=== PATIENT | female | born 1975 | race Caucasian/White ===

== ENCOUNTER 2018-09-18 05:38 | Day surgery (SDC) | payer BC ==
[2018-09-11 09:48] LABS: HEMATOCRIT 28.4 % (36.0-47.0); HEMOGLOBIN 8.7 g/dL (12.0-15.5); MEAN CORPUSCULAR HEMOGLOBIN 19.6 pg (27.0-33.4); MEAN CORPUSCULAR HGB CONC 30.7 g/dL (32.0-36.0); PLATELET COUNT 322 10^3/uL (150-450); RED BLOOD COUNT 4.44 10^6/uL (3.72-5.28); RED CELL DISTRIBUTION WIDTH 17.5 % (11.5-14.0); WHITE BLOOD COUNT 4.1 10^3/uL (4.0-10.5)
[2018-09-11 09:54] LABS: APPEARANCE,URINE CLEAR; BILIRUBIN,URINE NEGATIVE (NEGATIVE); COLOR,URINE STRAW; GLUCOSE, URINE NEGATIVE (NEGATIVE); KETONES,URINE NEGATIVE (NEGATIVE); LEUKOCYTE ESTERASE,URINE NEGATIVE (NEGATIVE); NITRITE,URINE NEGATIVE (NEGATIVE); PROTEIN,URINE NEGATIVE (NEGATIVE); URINE SPECIFIC GRAVITY 1.005; UROBILINOGEN,URINE NEGATIVE mg/dL (<2.0)
[2018-09-11 10:08] LABS: MEAN CORPUSCULAR VOLUME 64 fl (80-97)
[2018-09-11 10:12] LABS: ALANINE AMINOTRANSFERASE 31 U/L (9-52); ALBUMIN 3.9 g/dL (3.5-5.0); ALKALINE PHOSPHATASE 71 U/L (38-126); ANION GAP 9 (5-19); ASPARTATE AMINO TRANSFERASE 27 U/L (14-36); BILIRUBIN,DIRECT 0.2 mg/dL (0.0-0.4); BILIRUBIN,TOTAL 0.4 mg/dL (0.2-1.3); BLOOD UREA NITROGEN 8 mg/dL (7-20); CALCIUM 9.4 mg/dL (8.4-10.2); CARBON DIOXIDE 27 mmol/L (22-30); CHLORIDE 104 mmol/L (98-107); GLUCOSE 80 mg/dL (75-110); POTASSIUM 4.3 mmol/L (3.6-5.0); SODIUM 139.5 mmol/L (137-145)
--- NOTE | 2018-09-11 10:54 | RADIOLOGY REPORT (SQ) ---
EXAM DESCRIPTION: CHEST PA/LATERAL COMPLETED DATE/TIME: 09/11/2018 9:24 am REASON FOR STUDY: PRE-OP COMPARISON: None. EXAM PARAMETERS: NUMBER OF VIEWS: two views TECHNIQUE: Digital Frontal and Lateral radiographic views of the chest acquired. RADIATION DOSE: NA LIMITATIONS: none FINDINGS: LUNGS AND PLEURA: No opacities, masses or pneumothorax. No pleural effusion. MEDIASTINUM AND HILAR STRUCTURES: No masses or contour abnormalities. HEART AND VASCULAR STRUCTURES: Heart normal size. No evidence for failure. BONES: No acute findings. HARDWARE: None in the chest. OTHER: No other significant finding. IMPRESSION: NO SIGNIFICANT RADIOGRAPHIC FINDING IN THE CHEST. TECHNICAL DOCUMENTATION: JOB ID: [id number] [employer]- All Rights Reserved Reading location - IP/workstation name: [email or web address]
--- NOTE | 2018-09-11 20:44 | EKG REPORT ---
SEVERITY:- NORMAL ECG - SINUS RHYTHM : Confirmed by: Michela Cheatham MD 11-Sep-2018 20:43:29
[2018-09-12 12:30] LABS: PATH REVIEW PATHOLOGIST REVIEWED
[~2018-09-18 05:38] MED LIST: CEFAZOLIN 1 GM/D5W RTU 1 GM/50 ML RTUPB IV ONE; CEFAZOLIN 1 GM/D5W RTU 1 GM/50 ML RTUPB IV PRN; LACTATED RINGERS 1000 ML IV PRN; LIDOCAINE 0.5% INJ-PF (5 MG/ML) 50 ML SDV SUBCUT PRN; RINGERS SOLUTION,LACTATED 1,000 ML IV PRN
[2018-09-18] MEDS ORDERED: FENTANYL CITRATE INJ/PF 250 MCG/5 ML AMPULE ONE (07:24)
[2018-09-18] MEDS ORDERED: HYDROMORPHONE HCL INJ/PF 2 MG/ML AMPULE ONE (07:24)
[2018-09-18] MEDS ORDERED: PROPOFOL INJ 200 MG/20 ML VIAL IV ONE (07:24)
[2018-09-18] MEDS ORDERED: MIDAZOLAM 2 MG/2 ML INJ ONE (07:24)
[2018-09-18] MEDS ORDERED: BUPIVACAINE HCL 0.25 % INJ/PF (2.5 MG/1 ML) 30 ML VIAL ONE (07:27)
[2018-09-18] MEDS ORDERED: PROMETHAZINE HCL INJ 25 MG/1 ML VIAL IV PRN (08:10)
[2018-09-18] MEDS ORDERED: MEPERIDINE HCL/PF INJ 25 MG/1 ML DISP.SYRIN IV PRN (08:10)
[2018-09-18] MEDS ORDERED: FENTANYL CITRATE INJ/PF 100 MCG/2 ML AMPUL IV PRN ×3 (08:10)
[2018-09-18] MEDS ORDERED: MORPHINE SULFATE 10 MG/ML INJ IV PRN ×2 (08:10→10:01)
[2018-09-18] MEDS ORDERED: DIPHENHYDRAMINE HCL 50 MG/ML VIAL IV PRN (08:10)
[2018-09-18] MEDS: FENTANYL CITRATE INJ/PF 100 MCG/2 ML AMPUL ONE ×2 (09:50→09:55)
--- NOTE | 2018-09-18 10:00 | OPERATIVE REPORT E ---
Operative Report NAME: DONNIE MCCANN : 1975 AGE: 42Y DATE OF SURGERY: 09/18/2018 ROOM: PREOPERATIVE DIAGNOSIS: DYSMENORRHEA AND MENORRHAGIA. POSTOPERATIVE DIAGNOSIS: 1. DYSMENORRHEA AND MENORRHAGIA. 2. FIBROIDS. OPERATION: Robotic-assisted hysterectomy with granular morcellation and bilateral salpingectomy. SURGEON: Abdirashid LAURENT M.D. ESTIMATED BLOOD LOSS: Less than 50 mL TISSUE REMOVED: Uterus and tubes. SURGEON: Abdirashid LAURENT M.D. ANESTHESIA: General. PROCEDURE: The patient was placed in the dorsal position, prepped and draped in normal sterile fashion. A speculum was placed and the cervix was visualized and grasped with a single-tooth tenaculum and the uterus sounded to a depth of 12 cm. The uterine manipulator was then placed per protocol. Attention was turned to the abdomen, where a subumbilical linear incision was made. Trocar was introduced with visualization of the pelvis. The uterus was large and boggy and appeared to have a large posterior fibroid. Same puncture was made lateral to the first and a 5 was introduced. A third lateral on the right and a 5 was introduced and then an accessory port in the suprailiac crest on the right. Robot docked in usual fashion. Using monopolar and bipolar cautery, the left tube was identified and divided along the mesosalpinx. The broad ligament was then divided down to the ascending branch of the uterine artery. Procedure was repeated on the right. There were multiple adhesions from the posterior aspect of the uterus and these were taken down carefully with sharp and blunt dissection. Rim identified and circumferential incision made and the uterus then was too large to pass through so the robot was undocked and the uterus was removed by morcellation vaginal. The vaginal cuff was then closed with 0 V-Loc. Abdomen reinflated and the pelvis and cuff appeared to be hemostatic. Adnexa was hemostatic. No other overt abnormalities were noted. The laparoscope was removed and deflated. The trocar sleeve is removed. Incision is closed with 4-0 Vicryl subcutaneous. The patient's urine remained clear throughout the procedure and she was taken to the recovery room in good condition. DICTATING PHYSICIAN: Abdirashid LAURENT M.D. [id number] PHY#: [id number] ID: [id number] JOB#: [id number] ACCT: [id number] cc:Abdirashid LAURENT M.D. >
[2018-09-18] MEDS: OXYCODONE-ACETAMINOPHEN 5-325 MG TABLET PO PRN ×2 (11:07→18:04)
[2018-09-18] MEDS ORDERED: NEOSTIGMINE METHYLSULFATE 10 MG/10 ML VIAL ONE (12:14)
[2018-09-18] MEDS ORDERED: DEXAMETHASONE SOD PHOSPHATE INJ 4 MG/1 ML VIAL ONE (12:14)
[2018-09-18] MEDS ORDERED: SUCCINYLCHOLINE CHLORIDE INJ 200 MG/10 ML VIAL ONE (12:14)
[2018-09-18] MEDS ORDERED: VECURONIUM BROMIDE INJ 10 MG VIAL IV ONE (12:14)
[2018-09-18] MEDS ORDERED: GLYCOPYRROLATE 1 MG/5 ML VIAL ONE (12:14)
[2018-09-18] MEDS ORDERED: ONDANSETRON HCL INJ/PF 4 MG/2 ML SDV ONE (12:14)
[2018-09-18] MEDS: IBUPROFEN 800 MG TABLET PO SCH ×2 (13:21→21:55)
[2018-09-18] MEDS: ONDANSETRON 4 MG TAB.RAPDIS PO SCH ×2 (13:24→18:04)
[2018-09-18] MEDS ORDERED: RINGERS SOLUTION,LACTATED 1,000 ML IV ONE (18:00)
[2018-09-18] MEDS ORDERED: ZOLPIDEM TARTRATE 5 MG TABLET PO PRN (20:38)
[2018-09-18] MEDS: ESCITALOPRAM OXALATE 10 MG TABLET PO SCH (21:54)
[2018-09-19] MEDS: OXYCODONE-ACETAMINOPHEN 5-325 MG TABLET PO PRN ×2 (01:03→09:37)
--- NOTE | 2018-09-19 03:27 | PDOC PROGRESS REPORT ---
Subjective Progress Note for:: 09/18/18 Subjective:: called by RN regarding patients medications and patient had not met DTV Reason For Visit: N92.0 EXCESSIVE AND FREQUENT MENSTRUATION WITH REG Physical Exam - Physical Exam Vital Signs: Temp Pulse Resp BP Pulse Ox 97.9 F 76 16 109/70 100 09/19/18 00:56 09/19/18 00:56 09/19/18 00:56 09/19/18 00:56 09/19/18 00:56 Intake & Output 09/17/18 09/18/18 09/19/18 06:59 06:59 06:59 Intake Total 0 3350 Output Total 2275 Balance 0 1075 Weight 95.25 kg General appearance: PRESENT: no acute distress, well-developed, well-nourished Head exam: PRESENT: atraumatic, normocephalic Rectal exam: PRESENT: deferred Extremities exam: PRESENT: full ROM. ABSENT: calf tenderness, clubbing, pedal edema Neurological exam: PRESENT: alert, awake, oriented to person, oriented to place, oriented to time, oriented to situation, CN II-XII grossly intact. ABSENT: motor sensory deficit Psychiatric exam: PRESENT: appropriate affect, normal mood. ABSENT: homicidal ideation, suicidal ideation Skin exam: PRESENT: dry, intact, warm. ABSENT: cyanosis, rash Result Laboratory Results: 09/11/18 08:59 09/11/18 08:59 Impressions: Chest X-Ray 09/11/18 00:00 IMPRESSION: NO SIGNIFICANT RADIOGRAPHIC FINDING IN THE CHEST. Status: Imported from PACS Assessment & Plan - Diagnosis (1) Acute urinary retention Is this a current diagnosis for this admission?: Yes Plan: Pt underwent robotic hysterectomy on 09/18 in early am. Rn called and asked for clarification of lexapro order - order clarified. RN also reported that patient had not met DTV. - I clarified timing with RN. Surgery was likely completed approx 0900 at which time the parson was removed and patient arrived to floor around 1000 therefore DTV was due approx 1600. Per RN patient was unable to void since parson was removed and straight cath performed with approx 800+ removed from bladder. At which time the patient was reportedly asked to void again in an hour. Parson to gravity was requested to be replaced. I also notified operating surgeon regarding patients urinary retention and replacement of the catheter. - Time Time Spent with patient: Less than 15 minutes Medications reviewed and adjusted accordingly: Yes Anticipated discharge: Home Within: within 48 hours Disposition: Home - Inpatient Certification Based on my medical assessment, after consideration of the patient's comorbidities, presenting symptoms, or acuity I expect that the services needed warrant INPATIENT care.: Yes I certify that my determination is in accordance with my understanding of Medicare's requirements for reasonable and necessary INPATIENT services [42 CFR 412.3e].: Yes Medical Necessity: Failure to Improve With Outpatient Therapy, Need Close Monitoring Due to Risk of Patient Decompensation, Need For IV Fluids, Need for Pain Control
[2018-09-19] MEDS: IBUPROFEN 800 MG TABLET PO SCH (06:24)
[2018-09-19] MEDS ORDERED: BETHANECHOL CHLORIDE 25 MG TABLET PO ONE (09:30)
[2018-09-19] MEDS: ONDANSETRON 4 MG TAB.RAPDIS PO SCH (09:37)
[2018-09-19] MEDS: ESCITALOPRAM OXALATE 10 MG TABLET PO SCH (09:37)
[2018-09-19] MEDS ORDERED: DEXTROAMPHETAMINE PO SCH (10:00)
[2018-09-19] MEDS ORDERED: AMPHETAMINE PO SCH (10:00)
[2018-09-19] MEDS ORDERED: [UNRECOGNIZED DRUG - OTHER] PO SCH (10:00)
--- NOTE | 2018-09-19 11:22 | Discharge Summary ---
Discharge Summary (SDC) - Discharge Final Diagnosis: leiomyoma menorrhagia acute urinary retention Date of Surgery: 09/18/18 Discharge Date: 09/19/18 Condition: Good Referrals: ALEJO MOLINA MD [ACTIVE STAFF] - 10/02/18 1:00 pm (Please follow up with Dr Molina on 10/02/18 at 1:00. If you have any questions or problems please call the office directly at .) Discharge Diet: As Tolerated Respiratory Treatments at Home: Deep Breathing/Coughing Discharge Activity: Balance Activity w/Rest, No Lifting Over 10 Pounds, No Lifting/Push/Pulling, Pelvic Rest, Slowly Increase Activity, No tub bath Home Care Assistance: None Needed Report the Following to Your Physician Immediately: Shortness of Breath, Increase in Pain, Fever over 101 Degrees, Unusual Bleeding, Redness, Swelling, Warmth, Increased Soreness, IV Site Infection Signs, Urinary Infection Signs
[2018-09-19 12:06] VITALS: BP 114/67
== END 2018-09-19 12:44 | disposition home or self-care (01) ==
LOC: OROUT 05:38 → 2N 10:45 → OROUT 09-19 12:44
PROVIDERS: ATTEND Obstetrics & Gynecology Gynecology
DX: N92.0 Excessive and frequent menstruation with regular cycle (principal); D25.0 Submucous leiomyoma of uterus; N80.0 Endometriosis of uterus; N83.8 Other noninflammatory disorders of ovary, fallopian tube and broad ligament; N94.6 Dysmenorrhea, unspecified; R33.8 Other retention of urine; Z87.891 Personal history of nicotine dependence; Z79.899 Other long term (current) drug therapy
CPT/HCPCS: 58573; S2900; 36415; 71046; 80053; 81001; 81025; 840; 85027; 86850; 86900; 86901; 88307; 93005; 93010; J0330; J0690; J1100; J1170; J2250; J2270; J2405; J2704; J2710; J3010; J3490; J7120; S0119